=== PATIENT | female | born 1950 | race Caucasian/White ===

== ENCOUNTER 2021-11-28 08:12 | Emergency (ER) | payer MEDICARE, SELFPAY ==
--- NOTE | ~2021-11-28 | CT_ITS ---
EXAMINATION: CT ANGIOGRAM CHEST CLINICAL INFORMATION: Chest pain radiating to the back COMPARISON: None TECHNIQUE: Multiple axial images were obtained through the chest after the administration of 50 mL of Omnipaque 350 intravenous contrast. Extensive vascular post-processing including two-dimensional and three-dimensional reformatted images were created and reviewed on an independent workstation. This CT examination was performed using dose optimization techniques as appropriate, variously including the following: *Automated exposure control *Adjustment of mA and/or kV according to patient size (this includes techniques or standardized protocols for targeted exams where dose is matched to indication/reason for exam; i.e. extremities or head) *Use of iterative reconstruction technique DLP: 372 mGy-cm FINDINGS: Vascular: No aortic aneurysm or dissection. Aorta is mildly atherosclerotic. No pulmonary embolism. Mild coronary calcifications. Lungs/pleura: No focal consolidation or other acute pulmonary parenchymal abnormality. No suspicious pulmonary nodules. No pleural effusion or pneumothorax. Mediastinum/deep: Mild cardiomegaly. No pericardial effusion. No mediastinal, hilar or supraclavicular lymphadenopathy. Chest wall/axilla: Unremarkable. Imaged abdomen: Hepatic steatosis. Bones: No acute or suspicious osseous abnormality. CT/CT angio chest aorta IMPRESSION: * No aortic aneurysm or dissection. * No pulmonary embolism. * No acute pulmonary parenchymal abnormalities. * Mild coronary calcifications. * Hepatic steatosis.
--- NOTE | ~2021-11-28 | XR_ITS ---
EXAMINATION: XR CHEST CLINICAL INFORMATION: Chest pain. COMPARISON: None TECHNIQUE: Frontal view of the chest was obtained. FINDINGS: No significant abnormality is noted involving the heart, lungs, mediastinum, bony thorax or soft tissues. XR/XR chest 1V IMPRESSION: No acute cardiopulmonary process.
[2021-11-28 08:19] VITALS: BP 138/68; BP 232/73; PULSE 68; PULSE 80; RESP 18; TEMP 36.7; O2SAT 98; BMI 32.3
--- NOTE | 2021-11-28 08:22 | ECG_ITS ---
Test Reason : CHEST PAIN Blood Pressure : / mmHG Vent. Rate : 064 BPM Atrial Rate : 064 BPM P-R Int : 190 ms QRS Dur : 068 ms QT Int : 444 ms P-R-T Axes : 031 -03 028 degrees QTc Int : 458 ms Normal sinus rhythm Poor R wave progression Borderline ECG No previous ECGs available Referred By: Jared Kwon Electronically Signed By:APRIL DELATORRE MD
[2021-11-28 08:24] VITALS: BP 128/100; PULSE 68; RESP 18; O2SAT 98
--- NOTE | 2021-11-28 08:30 | ED.CHESTPAIN ---
HPI - Chest Pain General Chief Complaint: Chest Pain Stated Complaint: chest pain Time Seen by Provider: 11/28/21 08:22 Source: patient Limitations: no limitations History of Present Illness HPI narrative: This is a 71-year-old female who woke up this morning around 07:30 with a feeling of pain in her lower chest in the middle, radiating to her back between her shoulder blades. Patient denies having had similar pain in the past. She did have chest pain a few years ago but ended up having a negative workup. She denies shortness of breath, nausea, sweats. She denies any pain or swelling in her legs. She does have history of diabetes, denies hypertension. She is not a smoker. Pain does not radiate to her neck, jaw, shoulder, or arm. Patient was given aspirin 24 mg p.o. as well as nitroglycerin 1 sublingual pre-hospital which helped a little bit with the pain the pain is still 02/17 Related Data Allergies Allergy/AdvReac Type Severity Reaction Status Date / Time atorvastatin [From LIPITOR] Allergy Unknown COUGH Verified 11/28/21 11:58 lisinopril [LISINOPRIL] Allergy Unknown COUGH Verified 11/28/21 11:58 mirtazapine [From REMERON] Allergy Unknown RASH ALL Verified 11/28/21 11:58 OVER ARM & [employer] Allergy Unknown HIVES Uncoded 04/27/20 16:10 Review of Systems Constitutional: Constitutional: Reports as per HPI and Denies fever(s) Eyes: Eyes: Reports no additional eye complaints ENT: Reports system reviewed and no additional complaints, except as documented Cardiovascular: Cardiovascular: Reports as per HPI and Denies dyspnea Respiratory: Respiratory: Reports as per HPI and Denies dyspnea Gastrointestinal: Gastrointestinal: Denies nausea and Denies vomiting Musculoskeletal: Musculoskeletal: Reports no additional musculoskeletal complaints Neurologic: Reports system reviewed and no additional complaints, except as documented [facility] Past Medical History Medical History (Updated 11/28/21 @ 12:03 by Jared Kwon MD) Diabetes Social History Social History Advance Directives: No Advance Directives Information Provided: No Physical Exam Vital Signs: Vital Signs: Last Vital Signs Temp 98.1 F 11/28/21 10:53 Pulse 76 11/28/21 11:03 Resp 22 H 11/28/21 11:03 BP 171/83 H 11/28/21 11:03 Pulse Ox 96 11/28/21 10:53 BMI result Body Mass Index 32.3 Const: General: cooperative and no acute distress Nutritional Appearance: overweight Orientation/consciousness: patient oriented x3 HEENT: Head: Yes normal to inspection Eyes: General: appearance normal, both eyes and all related structures Pupils: Equal, round and reactive pupils present Chest: Chest palpation & inspection: normal palpation of entire chest wall Resp: Effort & Inspection: normal respiratory effort Auscultation: clear to auscultation bilaterally Cardio: Rate: regular rate Rhythm: regular rhythm Heart sounds: S1 normal heart sound present, S2 normal heart sound present, no gallops, no murmurs and no rubs GI: Palpation (GI): Soft to palpation, nontender and Other GI palpation findings present (Nondistended) Auscultation: normal bowel sounds Skin: Other: Warm and dry Neuro: General: patient oriented x3 Cranial nerves: Yes Equal, round and reactive pupils present Extrem: Other: No peripheral edema General: Yes normal to inspection MDM - Chest Pain MDM Narrative Medical decision making narrative: Patient woke up with severe chest pain in her mid chest radiating through to her mid upper back. Patient does have history of diabetes mellitus, denied hypertension. The patient does have history of hyperlipidemia. Patient's EKG was nondiagnostic. Given her complaint of chest pain to her back, CTA of the chest was done and was negative for any aortic aneurysm or dissection. The patient troponin was mildly elevated and a repeat 1 done a few hours later showed elevation to 80s. EKG was repeated and showed possible slight ST changes in V4 through V6. Chest x-ray was negative. Patient was treated with aspirin pre-hospital 324 mg p.o.. In the ED she was given morphine, labetalol for hypertension, later Plavix and heparin were started and the patient was given nitroglycerin sublingual, which did improve her chest pain, as it had pre-hospital. The case has been discus Dr. [place] of Cardiology at [facility], who has accepted patient for transfer. Critical care time for this life-threatening illness exclusive of all other billable procedures was approximately 55 minutes including initial evaluation of the patient, ordering tests, x-ray interpretation, EKG interpretation, medical consultation, documentation, reevaluation. Lab Data Attestation: I reviewed the patient's lab results. Result diagrams: 11/28/21 08:52 11/28/21 08:52 Labs: Lab Results 11/28/21 11/28/21 11/28/21 Range/Units 08:52 08:52 08:52 WBC 11.9 H (4.8-10.8) X10*3/uL RBC 4.77 (4.20-5.50) X10*6/uL Hgb 15.1 (12.0-16.0) g/dl Hct 44.8 (37.0-47.0) % MCV 93.9 (80.0-98.0) fL MCH 31.7 (27.0-33.0) pg MCHC 33.7 (31.0-35.0) g/dl RDW 12.9 (11.0-16.0) % Plt Count 286 (160-400) X10*3/uL MPV 11.5 (9.4-12.3) fL Immature Gran % (Auto) 1.1 H (0.0-0.4) % Neut % (Auto) 66.9 (45-73) % Lymph % (Auto) 22.7 (20-40) % [place] % (Auto) 7.8 (2-11) % Eos % (Auto) 1.2 (0-4) % Baso % (Auto) 0.3 (0-2) % Lymph # (Auto) 2.7 (1.2-4.9) X10*3/uL [place] # (Auto) 0.9 (0.1-1.2) X10*3/uL Eos # (Auto) 0.1 (0.0-0.4) X10*3/uL Baso # (Auto) 0.0 (0.0-0.2) X10*3/uL Abs Immat Gran (auto) 0.13 H (0.00-0.03) X10*3/uL Absolute Neuts (auto) 7.9 (2.0-8.3) x10*3/uL Absolute Nucleated RBC 0.000 (0.0-0.012) X10*3/uL Nucleated RBC % (auto) 0.0 (0.0-0.2) /100WBC PT (9.9-13.0) SEC INR (0.9-1.1) APTT (24.1-38.0) SEC Sodium 136 (135-145) mmol/L Potassium 4.8 (3.3-5.1) mmol/L Chloride 101 (96-108) mmol/L Carbon Dioxide 24 (22-29) mmol/L Anion Gap 16 (12-20) BUN 14 (9-16) mg/dL Creatinine 0.82 (0.5-1.4) mg/dL Estim Creat Clear Calc 57.7 Estimated GFR > 60 Random Glucose 309 H (60-115) mg/dL Calcium 9.1 (8.4-10.2) mg/dL Total Bilirubin 0.6 (0.0-1.0) mg/dL AST 40 H (5-31) U/L ALT 58 H (0-31) U/L Alkaline Phosphatase 67 (39-117) U/L Troponin I High Sens 26.5 H (<3.5-17.0) ng/L Total Protein 7.0 (6.5-8.0) g/dL Albumin 3.9 (3.5-5.0) g/dL 11/28/21 11/28/21 Range/Units 08:52 10:51 WBC (4.8-10.8) X10*3/uL RBC (4.20-5.50) X10*6/uL Hgb (12.0-16.0) g/dl Hct (37.0-47.0) % MCV (80.0-98.0) fL MCH (27.0-33.0) pg MCHC (31.0-35.0) g/dl RDW (11.0-16.0) % Plt Count (160-400) X10*3/uL MPV (9.4-12.3) fL Immature Gran % (Auto) (0.0-0.4) % Neut % (Auto) (45-73) % Lymph % (Auto) (20-40) % [place] % (Auto) (2-11) % Eos % (Auto) (0-4) % Baso % (Auto) (0-2) % Lymph # (Auto) (1.2-4.9) X10*3/uL [place] # (Auto) (0.1-1.2) X10*3/uL Eos # (Auto) (0.0-0.4) X10*3/uL Baso # (Auto) (0.0-0.2) X10*3/uL Abs Immat Gran (auto) (0.00-0.03) X10*3/uL Absolute Neuts (auto) (2.0-8.3) x10*3/uL Absolute Nucleated RBC (0.0-0.012) X10*3/uL Nucleated RBC % (auto) (0.0-0.2) /100WBC PT 11.4 (9.9-13.0) SEC INR 1.0 (0.9-1.1) APTT 36.2 (24.1-38.0) SEC Sodium (135-145) mmol/L Potassium (3.3-5.1) mmol/L Chloride (96-108) mmol/L Carbon Dioxide (22-29) mmol/L Anion Gap (12-20) BUN (9-16) mg/dL Creatinine (0.5-1.4) mg/dL Estim Creat Clear Calc Estimated GFR Random Glucose (60-115) mg/dL Calcium (8.4-10.2) mg/dL Total Bilirubin (0.0-1.0) mg/dL AST (5-31) U/L ALT (0-31) U/L Alkaline Phosphatase (39-117) U/L Troponin I High Sens 88.9 H* D (<3.5-17.0) ng/L Total Protein (6.5-8.0) g/dL Albumin (3.5-5.0) g/dL Imaging Data Chest x-ray: Radiologist's impression: IMPRESSION: No acute cardiopulmonary process. CT chest aortogram: Radiologist's impression: IMPRESSION: *? No aortic aneurysm or dissection. *? No pulmonary embolism. *? No acute pulmonary parenchymal abnormalities. *? Mild coronary calcifications. *? Hepatic steatosis. ECG Data ECG #1: ECG interpretation date: 11/28/21 ECG interpretation time: 08:56 Interpretation: Sinus rhythm with a rate of 64. No ST elevation or depression. Low voltage precordial leads. Poor R-wave progression but no destinee UAs except in lead V1. ECG #2: Attestation: I personally reviewed and interpreted this ECG as follows: ECG interpretation date: 11/28/21 ECG interpretation time: 10:49 Prior ECG tracings: available for review Interpretation: Sinus rhythm with a rate of 73. Poor R-wave progression between leads V2 and V3 but normal in the V for. Nonspecific ST changes in V4 through V6 with possible slight ST elevation. Discharge Plan Discharge Clinical Impression: Acute non-ST elevation myocardial infarction (NSTEMI) Patient Disposition: [facility] Transfer Details: [facility]
[2021-11-28] MEDS: Magnesium Hydrox/Alum Hydrox 30 ML ORAL.SUSP PO (08:43)
[2021-11-28] MEDS: ondansetron HCL 4 MG/2 ML VIAL IVPUSH (08:43)
[2021-11-28 09:15] LABS: MANUAL DIFF FLAG NO
[2021-11-28 09:16] LABS: Basophils Percent Auto 0.3 % (0-2); Eosinophils Absolute Auto 0.1 X10*3/uL (0.0-0.4); Eosinophils Percent Auto 1.2 % (0-4); Hematocrit 44.8 % (37.0-47.0); Hemoglobin 15.1 g/dl (12.0-16.0); Imm Gran Abs Auto 0.13 X10*3/uL (0.00-0.03); Imm Gran Pct Auto 1.1 % (0.0-0.4); Lymphocytes Absolute Auto 2.7 X10*3/uL (1.2-4.9); Lymphocytes Percent Auto 22.7 % (20-40); Mean Corpuscular HGB Conc 33.7 g/dl (31.0-35.0); Mean Corpuscular Hemoglobin 31.7 pg (27.0-33.0); Mean Corpuscular Volume 93.9 fL (80.0-98.0); Mean Platelet Volume 11.5 fL (9.4-12.3); Monocytes Absolute Auto 0.9 X10*3/uL (0.1-1.2); Monocytes Percent Auto 7.8 % (2-11); Neutrophils Absolute Auto 7.9 x10*3/uL (2.0-8.3); Neutrophils Percent Auto 66.9 % (45-73); Platelet Count 286 X10*3/uL (160-400); Red Blood Count 4.77 X10*6/uL (4.20-5.50); Red Cell Distribution Width 12.9 % (11.0-16.0); White Blood Count 11.9 X10*3/uL (4.8-10.8)
[2021-11-28 09:35] LABS: Prothrombin Time 11.4 SEC (9.9-13.0)
[2021-11-28] MEDS: Morphine Sulfate 2 MG/ML CARTRIDGE IVPUSH ×2 (09:36→10:59)
[2021-11-28 09:38] LABS: Partial Thromboplastin Time 36.2 SEC (24.1-38.0)
[2021-11-28 09:40] LABS: Alanine Aminotransferase 58 U/L (0-31); Albumin Level 3.9 g/dL (3.5-5.0); Alkaline Phosphatase 67 U/L (39-117); Anion Gap 16 (12-20); Aspartate Amino Transferase 40 U/L (5-31); Bilirubin Total 0.6 mg/dL (0.0-1.0); Blood Urea Nitrogen 14 mg/dL (9-16); Calcium 9.1 mg/dL (8.4-10.2); Carbon Dioxide 24 mmol/L (22-29); Chloride 101 mmol/L (96-108); Creatinine Clr Calc Pharmacy 57.7; Estimated Glomerular Filt Rate > 60; Glucose Random 309 mg/dL (60-115); Potassium 4.8 mmol/L (3.3-5.1); Sodium 136 mmol/L (135-145)
[2021-11-28 09:48] LABS: Troponin-I High Sensitivity 26.5 ng/L (<3.5-17.0)
--- NOTE | 2021-11-28 10:19 | ECG_ITS ---
Test Reason : REPEAT Blood Pressure : / mmHG Vent. Rate : 073 BPM Atrial Rate : 073 BPM P-R Int : 178 ms QRS Dur : 064 ms QT Int : 428 ms P-R-T Axes : 031 005 063 degrees QTc Int : 471 ms Normal sinus rhythm Poor R wave progression Cannot rule out Anterior infarct (cited on or before 28-NOV-2021) Borderline ECG When compared with ECG of 28-NOV-2021 08:33, No significant change was found Referred By: Jared Kwon Electronically Signed By:APRIL DELATORRE MD
[2021-11-28] MEDS: iohexoL 350 MG/ML 100 ML INFUS..BTL IV (10:43)
[2021-11-28 10:53] VITALS: BP 178/78; PULSE 73; RESP 13; TEMP 36.7; O2SAT 96
[2021-11-28 11:03] VITALS: BP 171/83; PULSE 76; RESP 22
[2021-11-28] MEDS: Nitroglycerin 0.4 MG TAB.SUBL SUBLINGUAL (11:08)
[2021-11-28] MEDS: Labetalol HCL 100 MG/20 ML VIAL 10 MG IVPUSH (11:08)
[2021-11-28 11:29] LABS: Troponin-I High Sensitivity 88.9 ng/L (<3.5-17.0)
--- NOTE | 2021-11-28 11:42 | PC.NURSE ---
call placed to [facility] for possible transfer
[2021-11-28] MEDS: Clopidogrel Bisulfate 300 MG TABLET PO (11:48)
[2021-11-28 12:11] VITALS: BP 135/72; PULSE 68
[2021-11-28] MEDS: Nitroglycerin 2 % Oint 1 GM Packet 1 INCH TRANSDERMA (12:11)
[2021-11-28 12:14] LABS: COVID-19 Test Negative (Negative)
[2021-11-28] MEDS: Heparin Sodium,Porcine 5,000 UNIT/ML VIAL 4000 UNIT IVPUSH (12:17)
[2021-11-28] MEDS: Heparin Sodium,Porcine/1/2NS 25,000 UNIT/250 ML IV.SOLN 9 UNIT IVCONT (12:20)
--- NOTE | 2021-11-28 12:24 | PC.NURSE ---
This RN working as float nurse. Patient awaiting transfer to [facility] for NSTEMI. Patient reports the pain is improved to 5/10 and is comfortable at this number. Administered Heparin push and Heparin drip as per protocol with Laura RN at bedside. Nitro paste applied to chest. Patient is alert and oriented with at bedside. Respirations regular and even. Skin PWD. Remains on monitor. Vitals WNL.
--- NOTE | 2021-11-28 13:29 | PC.NURSE ---
clydeonnginger placed to stu for transfer request to [facility]
[2021-11-28 13:52] LABS: Glucose, Whole Blood 337 mg/dL (60-115)
--- NOTE | 2021-11-28 14:07 | PC.NURSE ---
Report given to [facility] TERESA
== END 2021-11-28 14:21 | disposition short-term general hospital (02) ==
PROVIDERS: Emergency Provider Emergency Medicine; PCP Internal Medicine
DX: I21.4 Non-ST elevation (NSTEMI) myocardial infarction (principal); E11.9 Type 2 diabetes mellitus without complications; Z20.822 Contact with and (suspected) exposure to COVID-19
CPT/HCPCS: 36415; 71045; 71275; 80053; 82947; 84484; 85025; 85610; 85730; 87635; 93005; 96365; 96366; 96375; 96376; 99285; J2270; J2405; Q9967